=== PATIENT | male | born 1955 | race Caucasian/White ===

== ENCOUNTER 2016-09-30 12:15 | Inpatient (IN) | payer MEDICAID ==
[2016-09-30] MEDS ORDERED: ALBUTEROL SULFATE (0.083%) 2.5 MG/3 ML NEB INH ONE (12:42)
[2016-09-30] MEDS ORDERED: IPRATROPIUM/ALBUTEROL (0.5MG/3MG) NEB INH ONE (12:42)
[2016-09-30] MEDS ORDERED: METHYLPREDNISOLONE PF 125MG/VIAL IVP ONE (12:42)
[2016-09-30 13:01] LABS: HEMATOCRIT 42.4 % (42.0-52.0); HEMOGLOBIN 14.5 gm/dl (14.0-18.0); MEAN CELL VOLUME 96.6 fl (81-97); MEAN CORPUSCULAR HGB CONC 34.2 g/dl (32-36); MEAN PLATELET VOLUME 11.2 fl (7.4-10.4); PLATELET COUNT 144 K/uL (130-400); RED BLOOD COUNT 4.39 M/uL (4.40-5.70); RED CELL DISTRIBUTION WIDTH 12.8 % (11.5-14.5); WHITE BLOOD COUNT W/O DIFF 11.5 K/uL (4.2-12.2)
[2016-09-30] MEDS ORDERED: 0.9 % SODIUM CHLORIDE 1,000 ML BAG IV ONE (13:01)
--- NOTE | 2016-09-30 13:01 | Emergency Department Record ---
History of Present Illness - General Chief Complaint: Difficulty Breathing Stated Complaint: DUSTIN Time Seen by Provider: 09/30/16 12:38 Source: Patient Mode of Arrival: Wheelchair Limitations: No limitations - History of Present Illness Initial Comments: The patient is here due to a 2 week hx of cough and congestion that has gotten worse the last few days. He now is having more DUSTIN and fevers off and on. The patient has a hx of COPD and has had pneumonia in the past and once did need a chest tube. There is no CP, but he does have PARIKH and a productive cough. MD Complaint: Cough, Shortness of breath Onset/Timin -: Week(s) Severity: Moderate Improves With: Nothing Worsens With: Nothing Known History Of: Other Context: Recent illness, Recent URI Associated Symptoms: Cough, Orthopnia Treatments Prior to Arrival: None - Related Data Home Oxygen Therapy: No Home Medications Medication Instructions Recorded Confirmed Last Taken Allopurinol [Zyloprim] 100 mg PO BID 09/30/16 09/30/16 09/30/16 Cetirizine HCl [Zyrtec] 10 mg PO DAILY 09/30/16 09/30/16 09/30/16 Fluticasone Propionate [Flonase] 1 spray EACH NARES DAILY 09/30/16 09/30/1604/08 Lisinopril [Zestril] 20 mg PO DAILY 09/30/16 09/30/16 09/30/16 Sotalol HCl [Betapace] 80 mg PO BID 09/30/16 09/30/16 09/30/16 Warfarin Sodium [Coumadin] 5 mg PO DAILY 09/30/16 09/30/16 09/30/16 Allergies Allergy/AdvReac Type Severity Reaction Status Date / Time NO KNOWN DRUG ALLERGY Allergy PT UNSURE Uncoded 09/30/16 12:20 OF REACTION Travel Screening - Travel/Exposure Within Last 30 Days Have you traveled within the last 30 days?: No - Travel/Exposure Within Last Year Have you traveled outside the [place] in the last year?: No - Additonal Travel Details Have you been exposed to anyone with a communicable illness?: No - Travel Symptoms Symptom Screening: None Review of Systems Constitutional: Reports: Chills, Fever, Malaise Eyes: Denies: Eye discharge ENT: Reports: Congestion Respiratory: Reports: Cough, Dyspnea Cardiovascular: Denies: Arrhythmia, Chest pain Endocrine: Reports: Fatigue Gastrointestinal: Denies: Abdominal pain Genitourinary: Denies: Dysuria Musculoskeletal: Denies: Back pain Skin: Denies: Bruising Past Medical History - SOCIAL HISTORY Smoking Status: Current every day smoker Alcohol Use: Occassional Drug Use: None - RESPIRATORY Hx Respiratory Disorders: Yes Hx COPD: Yes - CARDIOVASCULAR Hx Cardio Disorders: Yes Hx Hypertension: Yes Hx Irregular Heartbeat: Yes Comment:: A-Fib - NEURO Hx Neuro Disorders: No - GI Hx GI Disorders: No - Hx Genitourinary Disorders: No - ENDOCRINE Hx Endocrine Disorders: No - MUSCULOSKELETAL Hx Musculoskeletal Disorders: Yes Hx Gout: Yes - PSYCH Hx Psych Problems: No - HEMATOLOGY/ONCOLOGY Hx Hematology/Oncology Disorders: No Family Medical History Any Significant Family History?: Yes Hx Cancer: Mother, Brother/Sister Hx HTN: Father Hx Kidney Disease: Father Physical Exam - General General Appearance: Alert, Oriented x3, Cooperative, No acute distress - Head Head exam: Atraumatic, Normocephalic, Normal inspection - Eye Eye exam: Normal appearance, PERRL - ENT Throat exam: Normal inspection. negative: Tonsillar erythema, Tonsillar exudate - Neck Neck exam: Normal inspection, Full ROM. negative: Tenderness - Respiratory Respiratory exam: Decreased breath sounds (L base.), Rhonchi (L base mainly.). negative: Normal lung sounds bilaterally - Cardiovascular Cardiovascular Exam: Regular rate, Normal rhythm, Normal heart sounds. negative : Diastolic murmur, Systolic murmur - GI/Abdominal GI/Abdominal exam: Soft, Normal bowel sounds. negative: Tenderness - Extremities Extremities exam: Normal inspection, Full ROM, Normal capillary refill. negative: Tenderness - Back Back exam: Reports: Normal inspection, Full ROM. Denies: Muscle spasm, Rash noted, Tenderness - Neurological Neurological exam: Normal gait. negative: Abnormal gait Course Vital Signs 09/30/16 12:27 Temperature 98.8 F Pulse Rate 87 Respiratory 20 Rate Blood Pressure 94/75 Pulse Ox 90 L - Reevaluation(s) Reevaluation #1: The patient is doing much better at this time. His lung aeration is improved and he denies any pain or DUSTIN. His O2 sats are improved on Oxygen and he is resting comfortably. Due to the patient's low oxygen saturations and pneumonia I did recommend hospital admission and the patient agrees. I did discuss the case with Dr. De Leon and she accepts the admission. 09/30/16 13:53 Medical Decision Making - Data Complexity MDM Data: Labs Ordered and/or Reviewed, X-Ray Ordered and/or Reviewed, EKG Ordered and/or Reviewed - Lab Data Result diagrams: 09/30/16 12:40 09/30/16 12:40 - EKG Data -: EKG Interpreted by Me EKG: No Acute Changes, Normal EKG - Radiology Data Radiology results: Report reviewed (CXR: COPD with L lower lung infiltrate.) Disposition Disposition: Admit Clinical Impression: Obstructive Chronic Bronchitis With Exacerbation Pneumonia Qualifiers: Pneumonia type: due to unspecified organism Laterality: left Lung location: lower lobe of lung Qualified Code(s): J18.1 - Lobar pneumonia, unspecified organism Disposition: Still a Patient at [facility] Decision to Admit: Admit from ER Decision to Admit Date: 09/30/16 Decision to Admit Time: 14:27 Accepting Physician: Haley Time Discussed w/Accepting Physician: 14:27 Condition: (2) Stable Forms: Patient Portal Access Time of Disposition: 14:27
[2016-09-30] MEDS ORDERED: AZITHROMYCIN 500 MG in 0.9 % SODIUM CHLORIDE 250ML 250 ML IVPB ONE (13:03)
[2016-09-30] MEDS ORDERED: CEFTRIAXONE SODIUM 1 GM in 0.9 % SODIUM CHLORIDE 100ML 100 ML IVPB ONE (13:03)
[2016-09-30 13:15] LABS: INR 1.73; PARTIAL THROMBOPLASTIN TIME 39.2 SECONDS (24.5-39.1); PROTHROMBIN TIME (PATIENT) 19.6 SECONDS (9.5-12.1)
[2016-09-30 13:16] LABS: PLATELET ESTIMATE NORMAL (NORMAL)
[2016-09-30 13:21] LABS: ANION GAP 9.9 (7-16); BLOOD UREA NITROGEN 13 mg/dL (9-20); CARBON DIOXIDE 28.1 mmol/L (22-30); CREATININE 0.8 mg/dL (0.66-1.25); EST GLOMERULAR FILTRATION RATE > 60 ml/min; GLUCOSE,RANDOM 152 mg/dL (70-110)
[2016-09-30] MEDS ORDERED: POTASSIUM CHLORIDE 20 MEQ TABLET PO ONE (13:22)
[2016-09-30 13:33] LABS: TROPONIN I 0.049 ng/mL (0.00-0.034)
[2016-09-30 14:26] LABS: CKMB 0.3 ug/L (0-6)
[2016-09-30] MEDS ORDERED: ACETAMINOPHEN 500 MG TABLET PO PRN (14:59)
[2016-09-30] MEDS ORDERED: IPRATROPIUM/ALBUTEROL (0.5MG/3MG) NEB INH PRN (14:59)
[2016-09-30] MEDS: 0.9 % SODIUM CHLORIDE 1000ML 1,000 ML IV PRN ×2 (15:42→23:00)
[2016-09-30 18:23] LABS: CKMB 0.4 ug/L (0-6); TROPONIN I 0.036 ng/mL (0.00-0.034)
[2016-09-30] MEDS: NICOTINE 21 MG/24 HOUR PATCH TD SCH (22:45)
[2016-09-30] MEDS: SOTALOL HCL 80 MG TABLET PO SCH (22:45)
[2016-09-30] MEDS: ALLOPURINOL 100 MG TAB PO SCH (22:45)
[2016-10-01 02:46] LABS: CKMB 0.6 ug/L (0-6); TROPONIN I 0.014 ng/mL (0.00-0.034)
[2016-10-01 04:47] LABS: BASO % 0.1 % (0-6); EOS % 4.7 % (0-6); GRAN % 76.8 % (47-80); HEMATOCRIT 41.8 % (42.0-52.0); HEMOGLOBIN 14.1 gm/dl (14.0-18.0); LYMPH % 13.7 % (16-45); MEAN CELL VOLUME 98.4 fl (81-97); MEAN CORPUSCULAR HEMOGLOBIN 33.1 pg (27-33); MEAN CORPUSCULAR HGB CONC 33.7 g/dl (32-36); MEAN PLATELET VOLUME 11.8 fl (7.4-10.4); MONO % 4.7 % (0-9); PLATELET COUNT 128 K/uL (130-400); RED BLOOD COUNT 4.25 M/uL (4.40-5.70); WHITE BLOOD COUNT W/O DIFF 8.5 K/uL (4.2-12.2)
[2016-10-01 04:56] LABS: ANION GAP 7.7 (7-16); BLOOD UREA NITROGEN 19 mg/dL (9-20); CARBON DIOXIDE 27.3 mmol/L (22-30); CREATININE 0.7 mg/dL (0.66-1.25); EST GLOMERULAR FILTRATION RATE > 60 ml/min; GLUCOSE,RANDOM 235 mg/dL (70-110)
--- NOTE | 2016-10-01 07:29 | RADIOLOGY REPORT ---
EXAM: CHEST, TWO VIEWS HISTORY: COUGH. TECHNIQUE: Frontal and lateral views of the chest were obtained. Comparison: Prior chest x-ray from 07/23/12. FINDINGS: The heart size is stable. Rather extensive air space opacity projecting over the left lung base. Underlying COPD with fibrotic changes bilaterally. No pneumothorax. Mild atheromatous change of the thoracic aorta. IMPRESSION: COPD WITH UNDERLYING FIBROTIC CHANGES. SUPERIMPOSED AIR SPACE OPACITY OVER THE LEFT LUNG BASE WHICH IS SUSPICIOUS FOR ASSOCIATED PNEUMONIA. RECOMMEND FOLLOW- UP UNTIL RESOLUTION. JOB NUMBER: [id number] MTDD
--- NOTE | 2016-10-01 09:14 | History & Physical ---
History of Present Illness - Date of Service Date of Service for History & Physical: 10/01/16 - History of Present Illness Admitting Diagnosis: 1. COPD Exacerbation. 2. L Lower Lobe Pneumonia History of Present Illness: 61 yo M with past medical history of COPD, thoracotomy 3 years ago, A fib, HTN, gout, current smoker, presented to the ED yesterday with a 2 week hx of cough and congestion that has gotten worse the last few days. He now is having more DUSTIN and fevers off and on. The patient has a hx of COPD and has had pneumonia in the past and once did need a chest tube. There is no CP, but he does have PARIKH and a productive cough. Today he feels better than he did yesterday with steroid treatment, breathing treatment, nicotine patch, and antibiotics (azithro and rocephin). Travel Screening - Travel/Exposure Within Last 30 Days Have you traveled within the last 30 days?: No - Travel/Exposure Within Last Year Have you traveled outside the [place] in the last year?: No - Additonal Travel Details Have you been exposed to anyone with a communicable illness?: No - Travel Symptoms Symptom Screening: Fever (Subjective) Review of Systems Constitutional: Reports: Chills, Fever, Malaise Eyes: Denies: Eye discharge ENT: Reports: Congestion Respiratory: Reports: Cough, Dyspnea Cardiovascular: Denies: Arrhythmia, Chest pain Endocrine: Reports: Fatigue Gastrointestinal: Denies: Abdominal pain Genitourinary: Denies: Dysuria Musculoskeletal: Denies: Back pain Skin: Denies: Bruising Past Medical History - SOCIAL HISTORY Smoking Status: Current every day smoker Alcohol Use: Occassional Drug Use: None - RESPIRATORY Hx Respiratory Disorders: Yes Hx COPD: Yes Hx Pneumonia: Yes Comment:: thoracotomy 3 years ago - CARDIOVASCULAR Hx Cardio Disorders: Yes Hx Hypertension: Yes Hx Irregular Heartbeat: Yes Comment:: A-Fib - NEURO Hx Neuro Disorders: No - GI Hx GI Disorders: No - Hx Genitourinary Disorders: No - ENDOCRINE Hx Endocrine Disorders: No - MUSCULOSKELETAL Hx Musculoskeletal Disorders: Yes Hx Gout: Yes - PSYCH Hx Psych Problems: No - HEMATOLOGY/ONCOLOGY Hx Hematology/Oncology Disorders: No Family Medical History Any Significant Family History?: Yes Hx Cancer: Mother, Brother/Sister Hx HTN: Father Hx Kidney Disease: Father H&P Meds/Allergies - Allergies Allergies: Allergies Allergy/AdvReac Type Severity Reaction Status Date / Time NO KNOWN DRUG ALLERGY Allergy PT UNSURE Uncoded 09/30/16 12:20 OF REACTION - Home Medications Home Medications Medication Instructions Recorded Confirmed Last Taken Allopurinol [Zyloprim] 100 mg PO BID 09/30/16 09/30/16 09/30/16 Cetirizine HCl [Zyrtec] 10 mg PO DAILY 09/30/16 09/30/16 09/30/16 Fluticasone Propionate [Flonase] 1 spray EACH NARES DAILY 09/30/16 09/30/1604/08 Lisinopril [Zestril] 20 mg PO DAILY 09/30/16 09/30/16 09/30/16 Sotalol HCl [Betapace] 80 mg PO BID 09/30/16 09/30/16 09/30/16 Warfarin Sodium [Coumadin] 5 mg PO DAILY 09/30/16 09/30/16 09/30/16 - Active Medications Active Medications: Current Medications Acetaminophen (Tylenol 500mg Tab) 500 mg PO Q6H PRN PRN Reason: PAIN/TEMP Albuterol/Ipratropium (Duoneb) 3 ml INH RESP.Q4H PRN PRN Reason: Wheezing Allopurinol (Zyloprim) 100 mg PO BID [facility] Last Admin: 09/30/16 22:45 Dose: 100 mg Levofloxacin/Dextrose 750 mg/ (Glucose) 150 mls @ 125 mls/hr IVPB DAILY [facility] Stop: 10/06/16 10:01 Sodium Chloride () 1,000 mls @ 83 mls/hr IV .Q12H3M PRN PRN Reason: LARGE VOLUME IV Last Admin: 09/30/16 23:00 Dose: 83 mls/hr Lisinopril (Zestril) 20 mg PO DAILY [facility] Loratadine (Claritin) 10 mg PO DAILY [facility] Methylprednisolone Sodium Succinate (Solu-Medrol) 60 mg IVP DAILY [facility] Nicotine (Nicotine 21mg) 1 patch TD Q24H [facility] Last Admin: 09/30/16 22:45 Dose: 1 patch Sotalol HCl (Betapace) 80 mg PO BID [facility] Last Admin: 09/30/16 22:45 Dose: 80 mg Warfarin Sodium (Coumadin) 5 mg PO DAILY [facility] Physical Exam - Vital Signs Vital Signs: Vital Signs - Last 24 Hrs Temp Pulse Pulse Resp BP BP BP 10/01/16 08:33 69 20 10/01/16 07:53 98.0 F 62 20 113/70 10/01/16 06:00 97.8 F 64 20 109/66 10/01/16 02:30 98.2 F 64 20 124/70 09/30/16 20:35 98.0 F 67 20 93/46 09/30/16 17:18 09/30/16 16:45 98.4 F 73 20 104/76 09/30/16 15:29 81 16 09/30/16 14:59 97.4 F L 81 16 96/59 09/30/16 14:51 76 20 101/62 Pulse Ox 10/01/16 08:33 10/01/16 07:53 92 L 10/01/16 06:00 95 10/01/16 02:30 95 09/30/16 20:35 95 09/30/16 17:18 92 L 09/30/16 16:45 92 L 09/30/16 15:29 09/30/16 14:59 93 L 09/30/16 14:51 94 L - General General Appearance: Alert, Oriented x3, Cooperative, No acute distress Limitations: No limitations - Head Head exam: Atraumatic, Normocephalic, Normal inspection - Eye Eye exam: Normal appearance, PERRL - ENT Throat exam: Normal inspection. negative: Tonsillar erythema, Tonsillar exudate - Neck Neck exam: Normal inspection, Full ROM. negative: Tenderness - Respiratory Respiratory exam: Decreased breath sounds (L base.), Rhonchi (L base mainly.). negative: Normal lung sounds bilaterally - Cardiovascular Cardiovascular Exam: Regular rate, Normal rhythm, Normal heart sounds. negative : Diastolic murmur, Systolic murmur - GI/Abdominal GI/Abdominal exam: Soft, Normal bowel sounds. negative: Tenderness - Extremities Extremities exam: Normal inspection, Full ROM, Normal capillary refill. negative: Tenderness - Back Back exam: Reports: Normal inspection, Full ROM. Denies: Muscle spasm, Rash noted, Tenderness - Neurological Neurological exam: Normal gait. negative: Abnormal gait Results - Labs Result Diagrams: 10/01/16 02:10 10/01/16 02:10 Labs Last 24 Hours: Laboratory Results - last 24 hr 09/30/16 10/01/16 10/01/16 17:55 02:10 02:10 WBC 8.5 RBC 4.25 L Hgb 14.1 Hct 41.8 L MCV 98.4 H MCH 33.1 H MCHC 33.7 RDW 13.0 Plt Count 128 L MPV 11.8 H Gran % 76.8 Lymphocytes % 13.7 L Monocytes % 4.7 Eosinophils % 4.7 Basophils % 0.1 Sodium Potassium Chloride Carbon Dioxide Anion Gap BUN Creatinine Estimated GFR Random Glucose Calcium CK-MB (CK-2) 0.4 0.6 Troponin I 0.036 H 0.014 10/01/16 02:10 WBC RBC Hgb Hct MCV MCH MCHC RDW Plt Count MPV Gran % Lymphocytes % Monocytes % Eosinophils % Basophils % Sodium 138 Potassium 3.7 Chloride 103 Carbon Dioxide 27.3 Anion Gap 7.7 BUN 19 Creatinine 0.7 Estimated GFR > 60 Random Glucose 235 H Calcium 8.6 CK-MB (CK-2) Troponin I VTE H&P Assessment - Risk for VTE Risk for VTE: Yes Risk Level: Moderate Risk Assessment Date: 10/01/16 Risk Assessment Time: 17:30 VTE Orders Placed or Will Be Placed: Yes Plan - Inpatient Certification Inpatient Certification: Admit to inpatient care: Based on my medical assessment, after consideration of patient's risk factors (age, co-morbidities and patient presenting symptoms and acuity), I expect that this patient will remain in the hospital greater than or equal to two midnights and that the services needed warrant inpatient care because: Patient Risk Factors: smoking with signs of PNA Estimated length of stay: [2-3] The patient may reasonably be expected to be discharged or transferred to a hospital within 96 hours after admission to [facility]. Services needed: [respiratory, steroids, breathing treatments, antibiotics Post hospital care (if known): [follow up with PCP, encouraged to quit smoking I certify that my determination is in accordance with my understanding of Medicare requirements for reasonable and necessary inpatient services. 10/01/16 17:34 - Detailed Diagnosis and Plan (1) COPD exacerbation Current Visit: Yes Status: Acute Base Code: J44.1 - CHRONIC OBSTRUCTIVE PULMONARY DISEASE W (ACUTE) EXACERBATION Priority: High Comment: 10/01/16- will treat for COPD exaccerbation with steroids, breathing treatments with albuterol and ipatropium and oxygen (2) Pneumonia Current Visit: Yes Status: Acute Qualifiers: Pneumonia type: due to unspecified organism Laterality: left Lung location: lower lobe of lung Qualified Code(s): J18.1 - Lobar pneumonia, unspecified organism Base Code: J18.9 - PNEUMONIA, UNSPECIFIED ORGANISM Comment: 10/01/16- will change to cefdinire and azithromycin since patient on coumdain for history fo PE (subtherapeutic currently) (3) Anticoagulant long-term use Current Visit: Yes Status: Acute Base Code: Z79.01 - JAIL (CURRENT) USE OF ANTICOAGULANTS Comment: 10/01/16- due to history of multiple PEs, pharmacy to dose currently, will chose medications that do not interact with coumadin for outpatient use (4) DVT prophylaxis Current Visit: Yes Status: Acute Base Code: [id number] - Comment: 10/01/16- on coumadin [facility]
[2016-10-01] MEDS ORDERED: LEVOFLOXACIN/D5W 750 MG in DEXTROSE 1 BAG IVPB SCH (10:00)
[2016-10-01] MEDS: SOTALOL HCL 80 MG TABLET PO SCH ×2 (10:44→18:33)
[2016-10-01] MEDS: CEFDINIR 300 MG CAPSULE PO SCH ×2 (10:44→22:33)
[2016-10-01] MEDS: ALLOPURINOL 100 MG TAB PO SCH ×3 (10:45→22:31)
[2016-10-01] MEDS: LORATADINE 10 MG TABLET PO SCH (10:45)
[2016-10-01] MEDS: AZITHROMYCIN 500 MG TABLET PO SCH (10:45)
[2016-10-01] MEDS: METHYLPREDNISOLONE PF 125MG/VIAL IVP SCH (10:45)
[2016-10-01] MEDS: LISINOPRIL 20 MG TABLET PO SCH (10:45)
[2016-10-01] MEDS: WARFARIN 5 MG TAB PO SCH (10:45)
[2016-10-01] MEDS: NICOTINE 21 MG/24 HOUR PATCH TD SCH (20:55)
[2016-10-01] MEDS: 0.9 % SODIUM CHLORIDE 1000ML 1,000 ML IV PRN ×2 (22:33→22:34)
[2016-10-02 06:44] LABS: INR 3.62; PROTHROMBIN TIME (PATIENT) 40.9 SECONDS (9.5-12.1)
[2016-10-02] MEDS: SOTALOL HCL 80 MG TABLET PO SCH (06:44)
[2016-10-02] MEDS: ALLOPURINOL 100 MG TAB PO SCH (06:46)
[2016-10-02] MEDS: CEFDINIR 300 MG CAPSULE PO SCH (09:15)
[2016-10-02] MEDS: LORATADINE 10 MG TABLET PO SCH (09:15)
[2016-10-02] MEDS: METHYLPREDNISOLONE PF 125MG/VIAL IVP SCH (09:16)
[2016-10-02] MEDS: LISINOPRIL 20 MG TABLET PO SCH (09:17)
[2016-10-02] MEDS: AZITHROMYCIN 500 MG TABLET PO SCH (09:17)
[2016-10-02 13:19] LABS: HEMATOCRIT 38.4 % (42.0-52.0); HEMOGLOBIN 13.1 gm/dl (14.0-18.0); MEAN CELL VOLUME 98.5 fl (81-97); MEAN CORPUSCULAR HGB CONC 34.1 g/dl (32-36); MEAN PLATELET VOLUME 12.2 fl (7.4-10.4); PLATELET COUNT 161 K/uL (130-400); RED CELL DISTRIBUTION WIDTH 13.1 % (11.5-14.5); WHITE BLOOD COUNT W/O DIFF 13.7 K/uL (4.2-12.2)
[2016-10-02 13:27] LABS: ALB/GLOB RATIO 0.9 (1.1-1.8); ALBUMIN 2.5 gm/dL (3.5-5.0); ALKALINE PHOSPHATASE 66 U/L (38-126); ALT/SGPT 395 U/L (21-72); ANION GAP 9.4 (7-16); AST/SGOT 429 U/L (17-59); BILIRUBIN,TOTAL 0.29 mg/dL (0.2-1.3); BLOOD UREA NITROGEN 17 mg/dL (9-20); CARBON DIOXIDE 23.6 mmol/L (22-30); CREATININE 0.6 mg/dL (0.66-1.25); EST GLOMERULAR FILTRATION RATE > 60 ml/min; GLUCOSE,RANDOM 187 mg/dL (70-110); TOTAL PROTEIN 5.2 gm/dL (6.3-8.2)
[2016-10-02 14:13] LABS: MEAN CORPUSCULAR HEMOGLOBIN 33.5 pg (27-33)
[2016-10-02] MEDS: WARFARIN 5 MG TAB PO SCH (15:01)
--- NOTE | 2016-10-02 15:05 | Discharge Summary ---
Providers Discharge Summary Date: 10/02/16 Date of admission: 09/30/16 14:45 Expected Date of Discharge: 10/02/16 Attending physician: MARIA G CH Primary care physician: ALBERTO MASON M.D. Physical Exam - Vital Signs Vital Signs: Vital Signs - Last 24 Hrs Temp Pulse Resp BP Pulse Ox 10/02/16 13:00 97.5 F L 75 18 125/72 95 10/02/16 09:00 97.4 F L 81 20 118/63 90 L 10/02/16 05:58 98.0 F 69 20 118/80 95 10/02/16 05:50 95 10/02/16 01:42 97.7 F 74 18 130/76 94 L 10/01/16 20:56 97.9 F 67 18 103/64 94 L 10/01/16 20:05 18 - General General Appearance: Alert, Oriented x3, Cooperative, No acute distress Limitations: No limitations - Head Head exam: Atraumatic, Normocephalic, Normal inspection - Eye Eye exam: Normal appearance, PERRL - ENT Throat exam: Normal inspection. negative: Tonsillar erythema, Tonsillar exudate - Neck Neck exam: Normal inspection, Full ROM. negative: Tenderness - Respiratory Respiratory exam: Prolonged expiratory (on left), Wheezes (more on left). negative: Normal lung sounds bilaterally, Chest wall tenderness - Cardiovascular Cardiovascular Exam: Regular rate, Normal rhythm, Normal heart sounds. negative : Diastolic murmur, Systolic murmur - GI/Abdominal GI/Abdominal exam: Soft, Normal bowel sounds. negative: Tenderness - Extremities Extremities exam: Normal inspection, Full ROM, Normal capillary refill. negative: Tenderness - Back Back exam: Reports: Normal inspection, Full ROM. Denies: Muscle spasm, Rash noted, Tenderness - Neurological Neurological exam: Normal gait. negative: Abnormal gait Hospitalization - Hospitalization Admission Diagnosis: 1. COPD Exacerbation. 2. L Lower Lobe Pneumonia - Problem List/Discharge Diagnosis (1) COPD exacerbation Current Visit: Yes Status: Acute Base Code: J44.1 - CHRONIC OBSTRUCTIVE PULMONARY DISEASE W (ACUTE) EXACERBATION Comment: 10/02/16- plan to continue treatment for COPD exaccerbation with steroids, breathing treatments with albuterol and ipatropium and oxygen. Will also send home with antibiotics to complete 10 day course for PNA. discussed quitting smoking for over 10 min (2) Pneumonia Current Visit: Yes Status: Acute Discharge Diagnosis: Pneumonia type: due to unspecified organism Laterality: left Lung location: lower lobe of lung Qualified Code(s): J18.1 - Lobar pneumonia, unspecified organism Base Code: J18.9 - PNEUMONIA, UNSPECIFIED ORGANISM Comment: 10/01/16- will change to cefdinire and azithromycin since patient on coumdain for history fo PE (subtherapeutic currently) (3) Anticoagulant long-term use Current Visit: Yes Status: Acute Base Code: Z79.01 - ALF (CURRENT) USE OF ANTICOAGULANTS Comment: 10/01/16- due to history of multiple PEs, pharmacy to dose currently, will chose medications that do not interact with coumadin for outpatient use (4) DVT prophylaxis Current Visit: Yes Status: Acute Base Code: [id number] - Comment: 10/01/16- [facility] - Hospitalization Course Abnormal Labs: Abnormal Lab Results 09/30/16 10/01/16 10/01/16 Range/Units 17:55 02:10 02:10 WBC (4.2-12.2) K/uL RBC 4.25 L (4.40-5.70) M/uL Hgb (14.0-18.0) gm/dl Hct 41.8 L (42.0-52.0) % MCV 98.4 H (81-97) fl MCH 33.1 H (27-33) pg Plt Count 128 L (130-400) K/uL MPV 11.8 H (7.4-10.4) fl Band Neutrophils % (0-5) % Lymphocytes % 13.7 L (16-45) % PT (9.5-12.1) SECONDS Potassium (3.5-5.1) mmol/L Creatinine (0.66-1.25) mg/dL Random Glucose 235 H (70-110) mg/dL AST (17-59) U/L ALT (21-72) U/L Troponin I 0.036 H (0.00-0.034) ng/mL Total Protein (6.3-8.2) gm/dL Albumin (3.5-5.0) gm/dL Albumin/Globulin Ratio (1.1-1.8) 10/02/16 10/02/16 10/02/16 Range/Units 06:20 06:20 06:20 WBC 13.7 H (4.2-12.2) K/uL RBC 3.90 L (4.40-5.70) M/uL Hgb 13.1 L (14.0-18.0) gm/dl Hct 38.4 L (42.0-52.0) % MCV 98.5 H (81-97) fl MCH 33.5 H (27-33) pg Plt Count (130-400) K/uL MPV 12.2 H (7.4-10.4) fl Band Neutrophils % 12.0 H (0-5) % Lymphocytes % 13.0 L (16-45) % PT 40.9 H (9.5-12.1) SECONDS Potassium 3.4 L (3.5-5.1) mmol/L Creatinine 0.6 L (0.66-1.25) mg/dL Random Glucose 187 H (70-110) mg/dL AST 429 H (17-59) U/L ALT 395 H (21-72) U/L Troponin I (0.00-0.034) ng/mL Total Protein 5.2 L (6.3-8.2) gm/dL Albumin 2.5 L (3.5-5.0) gm/dL Albumin/Globulin Ratio 0.9 L (1.1-1.8) Condition at Discharge: (1) Good Discharge Medications - Discharge Medications Prescriptions: Fluticasone/Salmeterol [Advair 250-50 Diskus] 1 each IH BID #1 disk.w.dev Cefdinir 300 mg PO BID #20 capsule Varenicline Tartrate [Chantix] 1 each PO ASDIR #1 tab.ds.pk Nicotine [Nicotine 21Mg] 1 patch TD Q24H #14 patch Prednisone [Prednisone 20Mg] 40 mg PO DAILY #8 tab Albuterol Sulfate [Proair Hfa] 1 - 2 puff IH .EVERY 4-6 HOURS PRN #1 inhaler PRN Reason: Difficulty In Breathing Azithromycin [Zithromax] 500 mg PO DAILY #10 tab Home Medications: Ambulatory Orders Allopurinol [Zyloprim] 100 mg PO BID 09/30/16 [Last Taken 09/30/16] Cetirizine HCl [Zyrtec] 10 mg PO DAILY 09/30/16 [Last Taken 09/30/16] Fluticasone Propionate [Flonase] 1 spray EACH NARES DAILY 09/30/16 [Last Taken 09/29/16] Lisinopril [Zestril] 20 mg PO DAILY 09/30/16 [Last Taken 09/30/16] Sotalol HCl [Betapace] 80 mg PO BID 09/30/16 [Last Taken 09/30/16] Warfarin Sodium [Coumadin] 5 mg PO DAILY 09/30/16 [Last Taken 09/30/16] Acetaminophen [Tylenol 500Mg Tab] 500 mg PO Q6H PRN #0 tablet 10/02/16 [Last Taken Unknown] Albuterol Sulfate [Proair Hfa] 1 - 2 puff IH .EVERY 4-6 HOURS PRN #1 inhaler 07/09 [Last Taken Unknown] Azithromycin [Zithromax] 500 mg PO DAILY #10 tab 10/02/16 [Last Taken Unknown] Cefdinir 300 mg PO BID #20 capsule 10/02/16 [Last Taken Unknown] Fluticasone/Salmeterol [Advair 250-50 Diskus] 1 each IH BID #1 disk.w.dev [Last Taken Unknown] Nicotine [Nicotine 21Mg] 1 patch TD Q24H #14 patch 10/02/16 [Last Taken Unknown] Prednisone [Prednisone 20Mg] 40 mg PO DAILY #8 tab 10/02/16 [Last Taken Unknown] Sotalol HCl [Betapace] 80 mg PO 0700,1900 tablet 10/02/16 [Last Taken Unknown] Varenicline Tartrate [Chantix] 1 each PO ASDIR #1 tab.ds.pk 10/02/16 [Last Taken Unknown] Discharge Plan - Discharge Instructions Activity at Discharge: Increase Activity as Tolerated Diet at Discharge: Regular Diet Instructions: How to Stop Smoking (DC)
[2016-10-02] MEDS ORDERED: FLUTICASONE/SALMETEROL 250/50 DISKUS INH SCH (18:00)
[2016-10-02] MEDS ORDERED: ALBUTEROL HFA 8 GM INHALER INH SCH (18:00)
== END 2016-10-02 16:15 | disposition home or self-care (01) | DRG 194 ==
LOC: ER 12:15 → MEDSURG 14:45
PROVIDERS: ADMIT Family Medicine; ATTEND Family Medicine
DX: J18.9 Pneumonia, unspecified organism (principal); J44.1 Chronic obstructive pulmonary disease with (acute) exacerbation; F17.210 Nicotine dependence, cigarettes, uncomplicated; I10 Essential (primary) hypertension; I48.91 Unspecified atrial fibrillation
CPT/HCPCS: 71020; 80048; 80053; 82550; 82553; 84484; 85025; 85027; 85610; 85730; 93005; 93010; 94640; 94760; 96365; 96366; 96375; 99223; 99239; 99285; J0456; J2930; J7030; J7050; J7613